=== PATIENT | female | born 1980 ===

== ENCOUNTER 2017-02-18 04:50 | Inpatient (IN) | payer OTHER ==
[2017-02-18] MEDS ORDERED: SODIUM CHLORIDE 0.9% FLUSH 10 ML SOL IV PRN (05:41)
[2017-02-18] MEDS ORDERED: CITRIC ACID/SODIUM CITRATE SOL PO SCH (05:45)
[2017-02-18] MEDS: LACTATED RINGERS 1,000 ML IV SCH ×4 (05:50→18:05)
[2017-02-18] MEDS ORDERED: MORPHINE SULFATE 0.5 MG/ML SOL ONE (06:04)
[2017-02-18] MEDS ORDERED: ONDANSETRON HCL 4 MG/2 ML SOL ONE (06:04)
[2017-02-18] MEDS ORDERED: PHENYLEPHRINE HYDROCHLORIDE 10 MG/ML SOL ONE (06:04)
[2017-02-18] MEDS ORDERED: CEFAZOLIN SODIUM 1 GM PDS ONE (06:04)
[2017-02-18 06:56] LABS: BASOPHILS % (AUTO) 1 % (0-3); EOSINOPHILS % (AUTO) 1 % (0-9); HEMATOCRIT 35 % (35-47); MEAN CORPUSCULAR HGB CONC 34.2 gm/dl (32.0-36.0); MEAN CORPUSCULAR VOLUME 77 fL (81-99); MONOCYTES % (AUTO) 5.1 % (0-12); NEUTROPHILS % (AUTO) 71.8 % (37-80)
[2017-02-18] MEDS: CEFAZOLIN (PREMIX) 1 GM 1 GM/50 ML SOL IV SCH ×2 (07:05→12:54)
[2017-02-18] MEDS ORDERED: OXYTOCIN 10000 MU/ML SOL ONE ×2 (07:41)
[2017-02-18] MEDS ORDERED: LACTATED RINGERS 1,000 ML with OXYTOCIN 10000 MU/ML 20 MU IV ONE (07:45)
[2017-02-18] MEDS ORDERED: WITCH HAZEL 1 EA PAD TOP PRN (08:30)
[2017-02-18] MEDS ORDERED: DIPHENHYDRAMINE 25 MG CAP PO PRN (08:30)
[2017-02-18] MEDS ORDERED: ONDANSETRON HCL 4 MG/2 ML SOL IV PRN (08:30)
[2017-02-18] MEDS ORDERED: METHYLERGONOVINE MALEATE 0.2 MG TAB PO PRN (08:30)
[2017-02-18] MEDS ORDERED: BENZOCAINE/MENTHOL 1 SPR TOP PRN (08:30)
[2017-02-18] MEDS ORDERED: BISACODYL 10 MG SUP PR PRN (08:30)
[2017-02-18] MEDS ORDERED: FLEET ENEMA PR PRN (08:30)
[2017-02-18] MEDS ORDERED: KETOROLAC TROMETHAMINE 30 MG/ML SOL IV PRN (08:30)
[2017-02-18] MEDS ORDERED: APAP/HYDROCODONE 325/5 TAB PO PRN (08:30)
[2017-02-18] MEDS: DOCUSATE SODIUM 100 MG SGL PO SCH ×3 (11:32→20:16)
[2017-02-18] MEDS ORDERED: CEFAZOLIN (PREMIX) 1 GM 1 GM/50 ML SOL IV ONE (12:16)
[2017-02-18] MEDS: IBUPROFEN 600 MG TAB PO PRN (19:39)
[2017-02-18] MEDS ORDERED: TEMAZEPAM 15MG 15 MG CAP ONE (22:22)
[2017-02-18] MEDS: TEMAZEPAM 15MG 15 MG CAP PO PRN (22:31)
[2017-02-19] MEDS: LACTATED RINGERS 1,000 ML IV SCH (02:00)
[2017-02-19] MEDS: DOCUSATE SODIUM 100 MG SGL PO SCH ×2 (08:35→21:36)
[2017-02-19] MEDS: IBUPROFEN 600 MG TAB PO PRN ×3 (11:07→21:36)
[2017-02-20] MEDS: IBUPROFEN 600 MG TAB PO PRN ×4 (03:05→22:05)
[2017-02-20] MEDS: DOCUSATE SODIUM 100 MG SGL PO SCH ×2 (09:00→20:26)
[2017-02-20] MEDS: FERROUS SULFATE 325 MG TAB PO SCH (12:28)
[2017-02-20] MEDS ORDERED: TEMAZEPAM 15MG 15 MG CAP ONE (22:29)
[2017-02-20] MEDS: TEMAZEPAM 15MG 15 MG CAP PO PRN (22:31)
[2017-02-21] MEDS: IBUPROFEN 600 MG TAB PO PRN (04:33)
[2017-02-21 07:44] VITALS: BP 134/86; PULSE 91; RESP 16; TEMP 97.3; O2SAT 98
[2017-02-21] MEDS: FERROUS SULFATE 325 MG TAB PO SCH (08:38)
[2017-02-21] MEDS: DOCUSATE SODIUM 100 MG SGL PO SCH (08:38)
[2017-02-21] MEDS ORDERED: PRENATAL VIT CALC IRON FOLIC PO SCH (09:00)
== END 2017-02-21 09:55 | disposition home or self-care (01) | DRG 540 ==
LOC: OB 04:50 → EDSTATUS 08:00
PROVIDERS: ADMIT Emergency Medicine; ATTEND Emergency Medicine
PROC: 10D00Z1 Extraction of Products of Conception, Low, Open Approach (ICD-10-PCS; principal; 2017-02-18 07:00)
DX: O11.4 Pre-existing hypertension with pre-eclampsia, complicating childbirth (principal); O24.429 Gestational diabetes mellitus in childbirth, unspecified control; O90.81 Anemia of the puerperium; Z3A.37 37 weeks gestation of pregnancy; Z37.0 Single live birth
CPT/HCPCS: 36415; 59025; 82962; 85018; 85025; 99070; J0690; J2274; J2405; J2590

== ENCOUNTER 2018-10-31 12:38 | Emergency (ER) | payer BC, OTHER ==
[2018-10-31 13:08] VITALS: RESP 20; TEMP 98
[2018-10-31] MEDS ORDERED: SODIUM CHLORIDE 0.9% 1000ML 1,000 ML IV ONE (13:26)
[2018-10-31 13:37] LABS: BASOPHILS % (AUTO) 1 % (0-3); EOSINOPHILS % (AUTO) 3 % (0-9); HEMATOCRIT 44 % (35-47); HEMOGLOBIN 13.5 gm/dl (12.0-15.5); LYMPHOCYTES % (AUTO) 29.2 % (10-50); MEAN CORPUSCULAR HEMOGLOBIN 27.7 pg (27.0-32.0); MEAN CORPUSCULAR HGB CONC 30.9 gm/dl (32.0-36.0); MEAN CORPUSCULAR VOLUME 89 fL (81-99); MONOCYTES % (AUTO) 5.5 % (0-12); NEUTROPHILS % (AUTO) 61.2 % (37-80)
[2018-10-31 13:50] LABS: ALBUMIN 3.3 gm/dl (3.4-5.0); BILIRUBIN,TOTAL 0.3 mg/dl (0.2-1.0); CALCIUM 8.6 mg/dl (8.5-10.1); CARBON DIOXIDE 27.4 mEq/L (21-32); CREATININE 0.76 mg/dl (0.60-1.00); POTASSIUM 3.7 mMol/L (3.5-5.1); TOTAL PROTEIN 7.8 gm/dl (6.4-8.2)
[2018-10-31 13:57] LABS: APPEARANCE,URINE Clear; BILIRUBIN,URINE NEGATIVE (NEGATIVE); COLOR,URINE Yellow; GLUCOSE, URINE (UA) NEGATIVE (NEGATIVE); KETONES,URINE NEGATIVE (NEGATIVE); LEUKOCYTE ESTERASE ,URINE NEGATIVE (NEGATIVE); NITRATE,URINE NEGATIVE (NEGATIVE); OCCULT BLOOD,URINE NEGATIVE (NEG-TRACE); PH,URINE 7.5; UROBILINOGEN,URINE 0.2 (0.2-1.0 EU)
[2018-10-31 14:13] LABS: BACTERIA NEGATIVE (< 1+); CRYSTALS NEGATIVE (0-3 AVE/HPF); RBC,URINE NEG (0-3AV/HPF); WBC,URINE NEG (0-5AV/HPF)
[2018-10-31] MEDS ORDERED: DIPHENHYDRAMINE 50 MG/ML SOL IV ONE (14:54)
[2018-10-31] MEDS ORDERED: DIPHENHYDRAMINE 50 MG/ML SOL ONE (14:59)
[2018-10-31 16:07] VITALS: BP 158/102; PULSE 78; O2SAT 98
[2018-10-31 16:07] LABS: AMYLASE 44 IU/L (25-115)
== END 2018-10-31 16:25 | disposition home or self-care (01) ==
LOC: ED 12:38
DX: R10.9 Unspecified abdominal pain (principal)
CPT/HCPCS: 36415; 74176; 80053; 81001; 82150; 85025; 96365; 96366; 96374; 99283; 99284; J1200